=== PATIENT | male | born 1975 | race Caucasian/White ===

== ENCOUNTER → 2016-11-01 | Outpatient (CLI) | payer OTHER ==
[~2016-11-01] MED LIST: CLAR10CA3 PO; FLON1SPR
--- NOTE | 2016-11-01 08:19 | REP ---
Clinical: Abdominal pain with nausea and vomiting. Technique: Real time matt scale ultrasound examination using curved array transducer. Findings: The liver is diffusely increased in echogenicity suggesting fatty infiltration without focal hepatic lesion identified. The pancreas is incompletely evaluated due to interposed bowel gas and poor through transmission secondary to fatty infiltration of the liver. The gallbladder appears contracted with multiple gallstones, but no wall thickening, pericholecystic fluid or sonographic Jackson's sign to suggest acute cholecystitis. No biliary ductal dilatation is appreciated and the common bile duct measures 5.1 mm diameter. Right kidney is normal in reniform shape without hydronephrosis and measures 12.8 x 6.5 x 5.7 cm. No ascites. Impression: 1. Fatty infiltration to the liver without focal hepatic lesion. II. Cholelithiasis without sonographic evidence for acute cholecystitis. Signed by Jorge Muse MD 11/01/2016 08:11 A
--- NOTE | 2016-11-01 11:36 | REP ---
HIDA SCAN WITH GALLBLADDER EJECTION FRACTION: Following the intravenous administration of 6.6 mCi of technetium 99m mebrofenin, multiple images of the right upper quadrant are performed every 5 minutes for a period of 1 hour. The gallbladder is visualized at 10 minutes post injection. There is biliary to bowel transit at 25 minutes post injection with no scintigraphic evidence of cholecystitis. At the 1 hour abimbola, 8 ounces of Ensure Enlive was ingested and further imaging performed for 1 hour. Gallbladder activity is measured and the gallbladder ejection fraction is calculated to be 3% which is markedly low. Normal ejection fraction should be 35%. IMPRESSION: No scintigraphic evidence of cholecystitis. Markedly low gallbladder ejection fraction at 3%. Signed by Dimitrios Mensah MD 11/01/2016 02:33 P
== END ==
LOC: M RAD 07:18
PROVIDERS: ATTEND Internal Medicine Gastroenterology
DX: R11.2 Nausea with vomiting, unspecified (principal)

== ENCOUNTER → 2016-11-12 | Outpatient (CLI) | payer OTHER ==
[~2016-11-12] VITALS: Ht 172.7 cm; Wt 112.0 kg
[~2016-11-12] MED LIST changes: +LIDOCAINE 2% INJ 100 MG/5 ML SDV (FOR ANES.) As Ordered ONE; +NS 1,000 ML IV SCH; +PROPOFOL 200 MG/20 ML VIAL As Ordered ONE
--- NOTE | 2016-11-12 09:50 | ROOR ---
Patient Name: Froilan Jensen Procedure Date: 11/12/2016 9:40 AM Date of : 1975 Age: 41 Room: [facility] Gender: Male Note Status: Finalized Procedure: Upper GI endoscopy Indications: Epigastric abdominal pain, Heartburn Providers: Hal PERERA MD Referring MD: AYLA SAWANT MD Requesting Provider: Medicines: Monitored Anesthesia Care Complications: No immediate complications. Procedure: Pre-Anesthesia Assessment: - The heart rate, respiratory rate, oxygen saturations, blood pressure, adequacy of pulmonary ventilation, and response to care were monitored throughout the procedure. The Endoscope was introduced through the mouth, and advanced to the second part of duodenum. The upper GI endoscopy was accomplished without difficulty. The patient tolerated the procedure well. Findings: The Z-line was variable and was found 40 cm from the incisors. The esophagus was normal. The stomach was normal. The examined duodenum was normal. Impression: - Z-line variable, 40 cm from the incisors. - Normal esophagus. - Normal stomach. - Normal examined duodenum. - No specimens collected. Recommendation: - Observe patient's clinical course. - Follow an antireflux regimen. - Refer to a surgeon at appointment to be scheduled. - (for biliary colic) Hal Perera MD Hal PERERA MD 11/12/2016 9:49:42 AM This report has been signed electronically. Number of Addenda: 0 Note Initiated On: 11/12/2016 9:40 AM Estimated Blood Loss: Estimated blood loss: none.
[2016-11-12 10:20] VITALS: BP 132/87
== END | disposition home or self-care (01) ==
LOC: M OPP 08:56
PROVIDERS: ATTEND Internal Medicine Gastroenterology
DX: R12 Heartburn (principal); K22.8 Other specified diseases of esophagus; R06.83 Snoring; Z79.51 Long term (current) use of inhaled steroids; Z79.899 Other long term (current) drug therapy

== ENCOUNTER → 2016-11-30 | Day surgery (SDC) | payer OTHER ==
[~2016-11-30] VITALS: Ht 170.2 cm; Wt 110.2 kg
[~2016-11-30] MED LIST changes: +ALBUTEROL 6.7GM INHALER **FOR ANES. CART/OMNICELL ONLY As Ordered ONE; +AMPICILLIN SOD/SULBACTAM SOD 3 GM in D5W MINI-BAG PLUS 100 ML IV ONE; +BUPIVACAINE HCL 0.25% 30 ML VIAL As Ordered ONE; +BUPIVACAINE HCL 0.25% 30 ML VIAL XX ONE; +CONRAY-60 60% 50ML VIAL (Q9961) As Ordered ONE; +GLYCOPYRROLATE INJ 0.2 MG/ML 2 ML VIAL As Ordered ONE; +KETOROLAC 30 MG/ML VIAL (J1885) IV PRN; +KETOROLAC 60 MG/2 ML VIAL (J1885) As Ordered ONE; +LIDOCAINE 1% SDV INJ 30 ML VIAL As Ordered ONE; +LIDOCAINE 1% SDV INJ 30 ML VIAL XX ONE; +LR 1,000 ML IV SCH; +MIDAZOLAM INJ 2 MG/2 ML VIAL (J2250) As Ordered ONE; +MORPHINE 2 MG/ML 1ML SYRINGE IV PRN; +NEOSTIGMINE 1MG/ML 5 ML SYRINGE (J2710) As Ordered ONE; +NORCO, ANEXSIA 5/325MG TABLET (HYDROcodone/ACETAMINOPHEN) PO PRN; -NS 1,000 ML IV SCH; +ONDANSETRON 4MG/2ML VIAL (J2405) As Ordered ONE; +ONDANSETRON 4MG/2ML VIAL (J2405) IV PRN; +PERCOCET 5MG/325MG TAB PO PRN; +ROCURONIUM BROMIDE 50 MG/5 ML VIAL As Ordered ONE; +fentaNYL 100 MCG/2 ML INJECTION (J3010) As Ordered ONE; +fentaNYL 100 MCG/2 ML INJECTION (J3010) IV PRN
[2016-11-30 11:10] VITALS: BP 113/71
--- NOTE | 2016-12-05 08:43 | RO ---
DATE OF PROCEDURE: 11/30/2016 PREOPERATIVE DIAGNOSIS: Symptomatic cholelithiasis. POSTOPERATIVE DIAGNOSIS: Symptomatic cholelithiasis. PROCEDURE: Laparoscopic cholecystectomy. SURGEON: Dr. Tucker INTERNATIONAL FREIGHT FORWARDER: Dr. Fitzgerald ANESTHESIA: General anesthesia. ESTIMATED BLOOD LOSS: Less than 25 mL. COMPLICATIONS: None. DRAINS: None. SPECIMENS: Gallbladder. REMARKS: Patient tolerated the procedure well. DESCRIPTION OF PROCEDURE: Mr. Jensen is a 41-year-old gentleman who was in my clinic for intermittent episodes of abdominal pain, found to have evidence of gallstones. His symptoms consistent with biliary colic type symptoms. He is scheduled today for laparoscopic cholecystectomy. He received 3.5 grams Unasyn for prophylaxis. He was then brought to the operating room, laid supine on table. Compression boots placed on his lower extremities for deep venous thrombosis (DVT) prophylaxis. General endotracheal anesthesia started without any complication. His abdomen prepped and draped in usual sterile fashion. Surgical time-out was performed and we began our surgery. Entry to the abdomen started via a short transverse incision above the umbilicus. Veress needle inserted in controlled fashion. Intra-abdominal placement confirmed with saline drop technique. CO2 insufflation started to a pressure of 15 mmHg. Using the same incision a 5 mm Visiport was placed under direct vision of the laparoscope. The insertion site was inspected for injury, none was found. He was then placed on a reverse Trendelenburg position with his right side tilted upwards to further expose the gallbladder. Under direct vision, an 11 mm epigastric port and two 5 mm ports over the right side was introduced. The fundus the gallbladder was grasped. It was elevated superiorly exposing the infundibulum and neck of the gallbladder. There was minimal flimsy adhesions of the omentum, which was easily lysed. Using a [place] instrument as well as Bovie cautery, the hepatocystic triangle was opened up. The peritoneal covering over the anterior posterior wall of the gallbladder likewise opening up to facilitate manipulation of the neck of the gallbladder. The cystic duct was identified, circumferentially dissected free and medially the cystic artery was likewise identified and circumferentially dissected. We continued dissection of the gallbladder neck posteriorly this from the hepatic plate. Once we have met the critical view of safety, whereby the duct and the artery were the only two structures coursing through the neck the gallbladder, the cystic artery was clipped four times and divided. We further made sure that the duct was properly identified. We then clipped this again four times and then divided this. Rest of the gallbladder was dissected free of the gallbladder bed. There was at the end some spillage of the gallbladder contents as we got into the back wall of the gallbladder. After removing the gallbladder, this was removed through the epigastric port site, which we had to enlarge due to the fairly large stone at the neck of the gallbladder. This broke off from the bag. The gallbladder was retrieved with an EndoCatch bag. On re-insufflation, the gallbladder bed was thoroughly irrigated until we have clear return. All visible irrigant suctioned off. We visualized the clips were noted to be in place. No further bleeding, nor any bile leakage noted. The abdomen was then deflated. All ports removed. The epigastric port site was repaired using #0 Vicryl in a mattress fashion. All skin incisions closed with #4-0 Monocryl in subcuticular fashion. Steri-Strips and gauze dressings then placed. The patient was then promptly awakened, extubated, brought to recovery room stable.
== END | disposition home or self-care (01) ==
LOC: M SDC 07:03
PROVIDERS: ATTEND Surgery
DX: K80.18 Calculus of gallbladder with other cholecystitis without obstruction (principal); R06.83 Snoring
CPT/HCPCS: 47562; 88304; J1885; J2250; J2405; J2710; J3010

== ENCOUNTER → 2017-11-02 | Outpatient (CLI) | payer OTHER | LOC: M WUC 09:03 | DX: S62.307A Unspecified fracture of fifth metacarpal bone, left hand, initial encounter for closed fracture (principal); X58.XXXA Exposure to other specified factors, initial encounter; Y92.89 Other specified places as the place of occurrence of the external cause | CPT/HCPCS: 73130 ==

== ENCOUNTER → 2018-12-30 | Outpatient (CLI) | payer OTHER ==
[~2018-12-30] MED LIST changes: -ALBUTEROL 6.7GM INHALER **FOR ANES. CART/OMNICELL ONLY As Ordered ONE; -AMPICILLIN SOD/SULBACTAM SOD 3 GM in D5W MINI-BAG PLUS 100 ML IV ONE; -BUPIVACAINE HCL 0.25% 30 ML VIAL As Ordered ONE; -BUPIVACAINE HCL 0.25% 30 ML VIAL XX ONE; -CONRAY-60 60% 50ML VIAL (Q9961) As Ordered ONE; -GLYCOPYRROLATE INJ 0.2 MG/ML 2 ML VIAL As Ordered ONE; -KETOROLAC 30 MG/ML VIAL (J1885) IV PRN; -KETOROLAC 60 MG/2 ML VIAL (J1885) As Ordered ONE; -LIDOCAINE 1% SDV INJ 30 ML VIAL As Ordered ONE; -LIDOCAINE 1% SDV INJ 30 ML VIAL XX ONE; -LIDOCAINE 2% INJ 100 MG/5 ML SDV (FOR ANES.) As Ordered ONE; -LR 1,000 ML IV SCH; -MIDAZOLAM INJ 2 MG/2 ML VIAL (J2250) As Ordered ONE; -MORPHINE 2 MG/ML 1ML SYRINGE IV PRN; -NEOSTIGMINE 1MG/ML 5 ML SYRINGE (J2710) As Ordered ONE; -NORCO, ANEXSIA 5/325MG TABLET (HYDROcodone/ACETAMINOPHEN) PO PRN; -ONDANSETRON 4MG/2ML VIAL (J2405) As Ordered ONE; -ONDANSETRON 4MG/2ML VIAL (J2405) IV PRN; -PERCOCET 5MG/325MG TAB PO PRN; -PROPOFOL 200 MG/20 ML VIAL As Ordered ONE; -ROCURONIUM BROMIDE 50 MG/5 ML VIAL As Ordered ONE; -fentaNYL 100 MCG/2 ML INJECTION (J3010) As Ordered ONE; -fentaNYL 100 MCG/2 ML INJECTION (J3010) IV PRN
[2018-12-30 10:21] LABS: ALBUMIN 3.8 GM/DL (3.2-5.2); ALT/SGPT 24 U/L (12-78); BILIRUBIN,TOTAL 0.6 MG/DL (0.2-1.0); BLOOD UREA NITROGEN 17 MG/DL (7-18); CARBON DIOXIDE LEVEL 29 MEQ/L (21-32); CHLORIDE LEVEL 107 MEQ/L (98-107); CHOLESTEROL LEVEL 188 MG/DL (<200); CHOLESTEROL RISK RATIO 3.686 (<5); CREATININE FOR GFR 0.95 MG/DL (0.70-1.30); GLOMERULAR FILTRATION RATE > 60.0 (>60); GLUCOSE, FASTING 102 MG/DL (70-100); HDL CHOLESTEROL 51 MG/DL (>40); LDL CHOLESTEROL 115 MG/DL (<100); NON-HDL-C 137 MG/DL; POTASSIUM SERUM 4.7 MEQ/L (3.5-5.1); SODIUM LEVEL 142 MEQ/L (136-145); TOTAL PROTEIN 6.9 GM/DL (6.4-8.2); TRIGLYCERIDES LEVEL 111 MG/DL (<150)
[2018-12-30 10:28] LABS: TOTAL 25(OH) VITAMIN D 20.9 NG/ML (30.0-100.0)
== END ==
LOC: M WUC 08:02
PROVIDERS: ATTEND Family Medicine
DX: E55.9 Vitamin D deficiency, unspecified (principal); E78.1 Pure hyperglyceridemia

== ENCOUNTER → 2019-01-26 | Outpatient (REF) | payer OTHER | LOC: M SFHCPLAZ 08:35 | PROVIDERS: ATTEND Family Medicine | DX: R73.01 Impaired fasting glucose (principal) ==